=== PATIENT | male | born 1985 | race Caucasian/White ===

== ENCOUNTER 2019-06-04 12:03 | Inpatient (IN) ==
[2019-06-04] MEDS ORDERED: NS 1,000 ML IV ONE ×2 (12:17→13:55)
[2019-06-04 12:58] LABS: BASO# 0.03 X1000 (0.0-0.2); BASO% 0.3 % (0.0-0.8); EOS# 0.12 X1000 (0.0-0.7); HEMATOCRIT 38.9 % (42.0-52.0); HEMOGLOBIN 13.7 g/dL (14.0-18.0); IMM GRAN# 0.11 X1000 (0.0-0.04); IMM GRAN% 0.9 % (0.0-0.5); LYMPH# 1.25 X1000 (1.2-3.4); LYMPH% 10.5 % (20.5-51.1); MCHC 35.2 g/dL (33-37); MCV 85.1 FL (81-99); MONO# 1.11 X1000 (0.11-0.59); MONO% 9.3 % (1.7-9.3); MPV 10.8 FL (7.4-10.4); NEUT# 9.31 X1000 (1.4-6.5); PLT 176 X1000 (130-400); RBC 4.57 XMIL (4.7-6.1); RDW 12.6 % (11.5-14.5); WBC 11.93 X1000 (4.8-10.8)
[2019-06-04 13:13] LABS: AGAP 18; ALBUMIN 4.5 g/dL (3.5-5.0); ALKALINE PHOSPHATASE 81 U/L (32-122); BUN 9 mg/dL (8-22); CHLORIDE 91 mmol/L (98-107); COSMO 251; CREATININE 0.9 mg/dL (0.7-1.2); ESTIMATED GFR > 60; GLUCOSE 110 mg/dL (70-104); GOT 22 U/L (10-34); GPT 21 U/L (10-44); POTASSIUM 3.1 mmol/L (3.5-5.1); SODIUM 125 mmol/L (136-145); TCO2 17 mmol/L (25-35); TOTAL PROTEIN 6.8 g/dL (6.3-8.3)
--- NOTE | 2019-06-04 13:15 | Diag Imaging Result Doc PS360 ---
EXAM: CT HEAD W/O CONTRAST 06/04/2019 HISTORY: AMS TECHNIQUE: This exam was performed using automated exposure control, adjustment of mA or kV according to patient size, and/or use of iterative reconstruction technique. COMMENT: There is no evidence of mass effect, bleed, or abnormal extra-axial fluid collection. The calvarium is intact. The visualized paranasal sinuses are clear. IMPRESSION: No evidence of acute intracranial disease. Electronically signed by Armando Rodriguez 06/04/2019 1:13 PM
--- NOTE | 2019-06-04 13:17 | Diag Imaging Result Doc PS360 ---
EXAM: CHEST-1 VIEW 06/04/2019 HISTORY: AMS TECHNIQUE: Erect AP chest at 1303 COMMENT: The inspiration is suboptimal. There are no previous studies. There are no focal pulmonary abnormalities. IMPRESSION: Poor inspiration. Electronically signed by Armando Rodriguez 06/04/2019 1:14 PM
[2019-06-04] MEDS ORDERED: POTASSIUM CHLORIDE 40 MEQ/SWI 40 MEQ/100 ML IVPB IV ONE (13:57)
[2019-06-04 14:02] LABS: URINE SOURCE CLEAN CATCH
[2019-06-04 14:06] LABS: BILIRUBIN URINE NEGATIVE (NEGATIVE); BLOOD URINE NEGATIVE (NEGATIVE); COLOR STRAW; GLUCOSE URINE NEGATIVE (NEGATIVE); KETONE URINE NEGATIVE (NEGATIVE); LEUKOCYTES URINE NEGATIVE (NEGATIVE); NITRITE URINE NEGATIVE (NEGATIVE); PROTEIN URINE NEGATIVE (NEGATIVE); SP GRAVITY URINE 1.002; TURBIDITY URINE CLEAR (CLEAR); UROBILINOGEN URINE NORMAL (NORMAL)
[2019-06-04 14:08] LABS: UR EPITHELIAL CELLS <10 /HPF (<10); URINE BACTERIA NEGATIVE /HPF; URINE RBC <10 /HPF (<10); URINE WBC <10 /HPF (<10)
[2019-06-04 14:13] LABS: UR AMPHETAMINES QUAL NONE DETECTED (NONE DETECT); UR BARBITUATES QUAL NONE DETECTED (NONE DETECT); UR BENZODIAZEPIN QUAL NONE DETECTED (NONE DETECT)
[2019-06-04 14:14] LABS: UR CANNABINOIDS QUAL NONE DETECTED (NONE DETECT); UR COCAINE QUAL NONE DETECTED (NONE DETECT); UR METHADONE QUAL NONE DETECTED (NONE DETECT); UR METHAMPHETAMINE QUAL NONE DETECTED (NONE DETECT); UR OPIATES QUAL NONE DETECTED (NONE DETECT); UR OXYCODONE QUAL NONE DETECTED (NONE DETECT); UR PCP QUAL NONE DETECTED (NONE DETECT); UR PROPOXYPHENE QUAL NONE DETECTED (NONE DETECT); UR TCA QUAL NONE DETECTED (NONE DETECT)
[2019-06-04] MEDS: POTASSIUM CHLORIDE 20 MEQ/SWI 20 MEQ/100 ML IVPB IV SCH ×2 (14:30→16:30)
--- NOTE | 2019-06-04 14:33 | Diag Imaging Result Doc PS360 ---
EXAM: CT ABD/PELVIS W/IV CONT ONLY 06/04/2019 HISTORY: NV TECHNIQUE: This exam was performed using automated exposure control, adjustment of mA or kV according to patient size, and/or use of iterative reconstruction technique. COMMENT: There are no previous studies available for comparison. There is minimal dependent atelectasis in the posterior costophrenic sulci bilaterally. There is a small amount of pleural fluid present on both sides. There is fluid in the distal esophagus and the stomach is somewhat distended with fluid. There is no evidence of small bowel dilatation or appendicitis. There is fluid in the ascending colon. The liver is slightly hypodense suggesting fatty change. The gallbladder is unremarkable. The adrenal glands are not enlarged. The pancreas is normal in appearance. There are bilateral renal cysts. The renal collecting systems are slightly distended. Pelvis: The urinary bladder is markedly distended extending into the lower abdomen. There is a Pulido catheter. There is no evidence of free fluid. There is no evidence of significant adenopathy. The aorta is not distended. The regional skeleton is intact. IMPRESSION: 1. Fluid in the distal esophagus stomach and ascending colon which may be indicative of gastroenteritis/enterocolitis. 2. Apparent urinary retention in the bladder with bilateral hydronephrosis. This is despite the presence of a Pulido catheter. Electronically signed by Armando Rodriguez 06/04/2019 2:30 PM
--- NOTE | 2019-06-04 14:42 | EKG Report ---
Test Performed on : 06/04/2019 1:09:02 PM Test Reason : CP Blood Pressure : / mmHG Vent. Rate : 087 BPM Atrial Rate : 087 BPM P-R Int : 144 ms QRS Dur : 090 ms QT Int : 386 ms P-R-T Axes : 035 052 068 degrees QTc Int : 464 ms Normal sinus rhythm. Normal ECG No previous ECGs available Unconfirmed Result
--- NOTE | 2019-06-04 14:57 | Diag Imaging Result Doc PS360 ---
EXAM: CHEST/ABD TUBE PLACEMENT 06/04/2019 HISTORY: NG Placement TECHNIQUE: Chest and abdomen for NG tube placement at 1446 COMMENT: The NG tube tip is in the fundus of the stomach. IMPRESSION: NG tube in the stomach. Electronically signed by Armando Rodriguez 06/04/2019 2:55 PM
[2019-06-04] MEDS ORDERED: ZOFRAN IV PRN ×3 (15:29→17:31)
[2019-06-04] MEDS ORDERED: ATIVAN IV PRN ×2 (15:29→15:32)
[2019-06-04] MEDS ORDERED: NS 1,000 ML IV SCH ×3 (15:30→17:29)
--- NOTE | 2019-06-04 15:37 | PROVIDER DOCUMENTATION ---
This chart was entered by Sara Yin Scribe, acting as scribe for Austin Sunshine CRNP. HPI-General Adult - General Chief Complaint: Altered Mental Status Stated Complaint: Vomitting Time Seen by Provider: 06/04/19 12:00 Source: EMS, other ([facility] staff) Allergies/Adverse Reactions: Patient Allergies Allergy/AdvReac Type Severity Reaction Status Date / Time No Known Allergies Allergy Verified 06/04/19 13:27 Home Medications: Home Medication List Medication Instructions Recorded Confirmed Last Taken Type Chlorpromazine [Thorazine] 100 mg PO DAILY 06/04/19 06/04/19 Unknown History Clonazepam [Klonopin] 1 mg PO BID 06/04/19 06/04/19 Unknown History [place] Carbonate 600 mg PO TID 06/04/19 06/04/19 Unknown History Topiramate [Topamax] 100 mg PO DAILY 06/04/19 06/04/19 Unknown History - History of Present Illness -Gen Adult Nature of Presenting Problems: pt is a 33 yr old male presenting via EMS from [facility], staff reports pt was found in bathroom floor, pt had been incontinent of bowel and bladder and had vomited x 1, pt was sleeping, easily roused on EMS arrival, but goes back to sleep quickly. pt admits taking his daily meds but denies taking anything else. pt is autistic and has hx of epilepsy. [facility] Review of Systems - Adult - REVIEW OF SYSTEMS - ADULT ROS:: unobtainable per condition Constitutional: reports: see HPI. denies: chills, fever Eyes: reports: no symptoms reported Ears, Nose, Mouth & Throat: reports: no symptoms reported Cardiovascular: reports: no symptoms reported Respiratory: reports: no symptoms reported Gastrointestinal: reports: no symptoms reported Genitourinary: reports: no symptoms reported Musculoskeletal: reports: no symptoms reported Integumentary: reports: no symptoms reported Neurological: reports: no symptoms reported Psychiatric: reports: no symptoms reported Endocrine: reports: no symptoms reported Hematologic/Lymphatic: reports: no symptoms reported Allergic/Immunologic: reports: no symptoms reported All Other Systems: Reviewed and Negative Past History - Adult - PAST MEDICAL HISTORY-ADULT Review of Records: reports: Old Records Reviewed, Nursing Assessment Review, Medications Reviewed, Social history reviewed & non-contributory. Major Childhood Illnesses: reports: denies history Cardiovascular: reports: denies history Respiratory: reports: denies history Gastrointestinal: reports: denies history Obstetrical/Gynecological: reports: denies history Genitourinary: reports: denies history Musculoskeletal: reports: denies history Neurological: reports: denies history Endocrine/Immune: reports: denies history Other Conditions: reports: denies history - IMMUNIZATION STATUS Childhood Immunizations: See Nurse Assessment Flu Vaccine: See Nurse Assessment - FAMILY HISTORY Family History: reviewed, not pertinent Physical Exam-General - PHYSICAL EXAM-ADULT Initial Vital Signs Reviewed: Yes - CONSTITUTIONAL General Appearance: no apparent distress, obese, lethargic (easily aroused) - EYES Eyes: PERRL/EOMI - HEAD, EARS, NOSE, MOUTH & THROAT HENMT: normocephalic/atraumatic, moist mucous membranes - NECK Neck: full range of motion, supple - RESPIRATORY Respiratory: lungs clear, normal breath sounds, no respiratory distress, no accessory muscle use - CARDIOVASCULAR Cardiovascular: normal peripheral pulses, regular rate, rhythm, no edema - GASTROINTESTINAL (ABDOMEN) Abdominal Exam: non tender, soft - LYMPHATIC Lymphatic: no adenopathy - MUSCULOSKELETAL Back Exam: normal inspection Extremity: normal range of motion, non-tender, normal inspection - SKIN Integumentary: normal turgor, warm/dry. negative: normal color (pale) Progress - PLAN OF CARE/RESULTS Progress/Plan/Lab Results: nurse reports difficulty with yu insertion using straight cath. Reports needing a Coude catheter for insertion. initially only 600ml came out. However, after returning from CT, the yu was clamped at 2000mL with more needing to drain. Result Diagrams: 06/04/19 12:55 06/04/19 12:55 - REASSESSMENT Reassessment #1 Time Reassessed: 14:49 Status: improving (patient is awake, alert and talking. He verbalize, mild stomach discomfort.) - EKG 1 Time of EKG reading by physician:: 13:09 EKG Read and Signed by:: Jordan Carlos EKG Interpretation (*Must complete 3 of following elements*): Normal Rate: 87 Rhythm: nsr [place]: normal QRS: normal [place] Interval: normal ST Wave: normal - XRAY 1 XRAY Study: Chest Impression: Abnormal ( Department of Imaging Patient: AUSTIN MERINOADM Date: 06/04/19MR#: [id number] : 1985ADM Status: REG [facility]#: [id number] Age/Sex: 33/MRoom/Bed: Loc: P.ED Ordering Physician: Austin Sunshine Family Physician: None,PCP Reason for Procedure: AMS Signed EXAM: CHEST-1 VIEW 06/04/2019 HISTORY: AMS TECHNIQUE: Erect AP chest at 1303 COMMENT: The inspiration is suboptimal. There are no previous studies. There are no focal pulmonary abnormalities. IMPRESSION: Poor inspiration. Electronically signed by Armando Rodriguez 06/04/2019 1:14 PM 06/04/19 1314 Interpreting Physician: Armando Rodriguez MD Dictated Date/Time: 06/04/19 1314 cc: Austin Sunshine; None,PCP) Comparison with other Films: no prior study - CT/MRI 1 CT Study: Head Impression: Normal ( Patient: AUSTIN MERINOADM Date: 06/04/19MR#: [id number] : 1985ADM Status: REG [facility]#: [id number] Age/Sex: 33/MRoom/Bed: Loc: P.ED Ordering Physician: Austin Sunshine Family Physician: None,PCP Reason for Procedure: AMS Signed EXAM: CT HEAD W/O CONTRAST 06/04/2019 HISTORY: AMS TECHNIQUE: This exam was performed using automated exposure control, adjustment of mA or kV according to patient size, and/or use of iterative reconstruction technique. COMMENT: There is no evidence of mass effect, bleed, or abnormal extra-axial fluid collection. The calvarium is intact. The visualized paranasal sinuses are clear. IMPRESSION: No evidence of acute intracranial disease. Electronically signed by Armando Rodriguez 06/04/2019 1:13 PM 06/04/19 1313 Interpreting Physician: Armando Rodriguez MD Dictated Date/Time: 06/04/19 1312 cc: Austin Sunshine; None, P) Comparison with other Films: no prior study 2 CT Study: Abdomen, Pelvis Impression: Abnormal ( Patient: AUSTIN MERINOADM Date: 06/04/19#: [id number] : 1985ADM [facility] ERA[facility]ct#: [id number] Age/Sex: 33/MRoom/Bed: Loc: P.ED Ordering Physician: Austin Susnhine Family Physician: None,PCP Reason for Procedure: NV Signed EXAM: CT ABD/PELVIS W/IV CONT ONLY 06/04/2019 HISTORY: NV TECHNIQUE: This exam was performed using automated exposure control, adjustment of mA or kV according to patient size, and/or use of iterative reconstruction technique. COMMENT: There are no previous studies available for comparison. There is minimal dependent atelectasis in the posterior costophrenic sulci bilaterally. There is a small amount of pleural fluid present on both sides. There is fluid in the distal esophagus and the stomach is somewhat distended with fluid. There is no evidence of small bowel dilatation or appendicitis. There is fluid in the ascending colon. The liver is slightly hypodense suggesting fatty change. The gallbladder is unremarkable. The adrenal glands are not enlarged. The pancreas is normal in appearance. There are bilateral renal cysts. The renal collecting systems are slightly distended. Pelvis: The urinary bladder is markedly distended extending into the lower abdomen. There is a Yu catheter. There is no evidence of free fluid. There is no evidence of significant adenopathy. The aorta is not distended. The regional skeleton is intact. IMPRESSION: 1. Fluid in the distal esophagus stomach and ascending colon which may be indicative of gastroenteritis/enterocolitis. 2. Apparent urinary retention in the bladder with bilateral hydronephrosis. This is despite the presence of a Yu catheter. Electronically signed by Armando Rodriguez 06/04/2019 2:30 PM 06/04/19 1430 Interpreting Physician: Armando Rodriguez MD Dictated Date/Time: 06/04/19 1426 cc: Austin Sunshine; None,PCP) - CONSULTS/PCP/HOSPITALIST Notification #1 *Consult/PCP/Hospitalist*: Dr Joseph Time Discussed: 15:31 Reason/Comments: Urinary Retention, Bilateral Hydonephrosis, metabolic acidosis Consult Disposition: Admit Departure - Departure Date of Disposition Decision: 06/04/19 Time of Disposition Decision: 15:35 DIAGNOSIS: Bilateral hydronephrosis, Urinary retention, Metabolic acidosis Disposition: ADMITTED INPATIENT 09 Certified Medical Emergency: Emergent Condition: Critical Additional Instructions: ED Follow Up Instructions: You have been treated by a care provider in the Emergency Department. These instructions are being provided to you so you can have an understanding of how to care for yourself upon discharge. Upon discharge from the Emergency Department, you are responsible for making arrangements for follow-up care by a physician of your choice. Take all prescribed medications as directed. Return to the Emergency Department immediately for any new or worsening symptoms. You may call the Physician Referral phone number at [phone] to obtain a list of Physicians who are taking new patients. Referrals and Follow-Ups: None,PCP [Primary Care Provider] - - Critical Care Note This patient required my direct & personal management of CC.: No Attestation - Physician/ ASHLEIGH Attestation Patient care was provided by Advanced Practice Provider:: Yes Advanced Practice Provider:: Austin Sunshine Advanced Practice Provider documentation review:: The Mid-level provider documentation, treatment plan and medical decision making was reviewed by the physician who agrees with all treatment and medical decision making by the [facility]. The physician spent face to face time with patient:: No Advanced Practice Provider documentation review:: Supervising physician onsite a nd consulted in the evaluation and care of this patient. The physician did not have a face to face encounter with the patient. This chart was documented by the indicated scribe, (Sara Yin, Elaina) and accurately reflects the services I performed and decisions made by Bita ybarra Reagan R., CRNP, as attested by the provider's signature.
[2019-06-04] MEDS ORDERED: TYLENOL PO PRN (17:31)
[2019-06-04] MEDS ORDERED: POTASSIUM CHLORIDE 40 MEQ in NS 1,000 ML IV SCH (17:33)
[2019-06-04] MEDS ORDERED: OFIRMEV 1000 MG/ISOTONIC SOLN 1,000 MG/100 ML BOTTLE IV PRN (17:33)
--- NOTE | 2019-06-04 18:03 | HISTORY AND PHYSICAL ---
CHIEF COMPLAINT: Nausea and vomiting. HISTORY OF PRESENT ILLNESS: This is a 33-year-old male with not a lot of medical problems. I think most of it is psychiatric. He is not very old. He is 33, autistic, a long term patient. He was found on the bathroom floor incontinent of bowel and bladder. I did not get that information initially. But he has vomited several times. Lethargic initially, but he is not lethargic now. He had several more episodes of throwing up today in the ER to the point where they had to put an NG tube. He was retaining a significant amount of urine, so a catheter was placed. They placed a coude and they got 600 mL out, but in the last 5 hours he has had about 5 L out. Although no renal failure. His CT showed enterocolitis and significant urinary retention with hydronephrosis. Staff reports that he was treated for UTI last week and then he kind of had a fever, URI a couple weeks ago. Workup in the ER was unremarkable except for Enterocolitis and significant urinary retention. He was admitted for both those issues. Mullan level was somewhat low. White count was elevated as well. PAST MEDICAL HISTORY: Again, it just reports autism and reported seizure disorder. PAST SURGICAL HISTORY: I cannot tell he has had any abdominal surgeries or any major surgeries. SOCIAL HISTORY: No tobacco or ethanol. He is a long term patient. ALLERGIES: No known drug allergies. MEDICATIONS: He is on Klonopin 1 b.i.d., lithium 600 t.i.d., Thorazine 100 daily, and Topamax 100 daily. REVIEW OF SYSTEMS: Otherwise negative times a 10-point review of systems. PHYSICAL EXAMINATION: VITAL SIGNS: Blood pressure 117/80, heart rate 105, respiratory rate of 17, temperature was 97.7 degrees, and oxygen saturation 99% on room air. GENERAL: A well-developed male in no acute distress. HEAD: Examination was normocephalic, atraumatic. EYES: Pupils equal, round, and reactive to the light. Extraocular movements were intact. NOSE: He has an NG in place. CARDIOVASCULAR: Regular rate and rhythm. PULMONARY: Bilateral breath sounds diminished at the bases. GASTROINTESTINAL: Soft, nontender, nondistended. Bowel sounds were diminished. But his abdominal exam is pretty benign. GENITOURINARY: Deferred, but he has Pulido in place. NEUROLOGIC: Nonfocal. Cranial nerves II through XII were intact. He is alert and oriented. Strength is about 4 to 5 in all 4 extremities. Limited somewhat, but I think some of that is attention and cooperation. LABORATORY DATA: White count 11, hemoglobin and hematocrit 13 and 38, platelets 176,000. Creatinine normal 0.9, potassium 3.1, sodium 125. ASSESSMENT: This is a 33-year-old male coming in with urinary retention and evidence of enterocolitis, possibly viral, but such as a gastroenteritis. 1. Enterocolitis. We will try to get stool samples. There were reports of diarrhea. He has been on antibiotics, so I think we need to rule out Clostridium difficile. I am going to hold on any antibiotics at this point until we get that information sequestered. Continue antiemetic therapy. We will leave the nasogastric tube in place for the time being. Repeat plain films tomorrow and then assess if we can take it out. At this point there is no clear evidence of obstruction or anything to that effect. 2. Severe urinary retention. We will start Flomax. I guess check a PSA. He will at some point need Urology, but we are not going to plan to take the catheter out right now, so we will arrange that as an outpatient. If there is some sort of issue with it, we may have to get a urological opinion. But then he will have to be transferred to other facility. His urine was not infected. 3. Intellectual impairment, autism. He is on lithium. Those medications will likely need to be resumed although I do not think any of these can be substituted IV pisano, but hopefully we can get him back on his medicines as soon as tomorrow. DISPOSITION: Pending his clinical status. This is a service admission. He is a long term patient. Ari Wolf. Now his electrolytes were checked in March though and were normal. So we will continue to follow. cc: Alonso Joseph MD
[2019-06-04] MEDS: FLOMAX PO SCH (18:04)
[2019-06-04] MEDS: PROTONIX IV SCH (18:04)
[2019-06-04] MEDS: SODIUM CHLORIDE 0.9% INJ SCH (18:05)
[2019-06-04] MEDS: NS 1,000 ML IV SCH (18:55)
[2019-06-04] MEDS: ATIVAN IV PRN (19:34)
[2019-06-04 21:08] LABS: AGAP 17; BUN 7 mg/dL (8-22); CALCIUM 9.7 mg/dL (8.8-10.2); CHLORIDE 105 mmol/L (98-107); COSMO 275; CREATININE 0.9 mg/dL (0.7-1.2); ESTIMATED GFR > 60; GLUCOSE 129 mg/dL (70-104); POTASSIUM 3.9 mmol/L (3.5-5.1); SODIUM 138 mmol/L (136-145); TCO2 17 mmol/L (25-35)
[2019-06-05] MEDS: ATIVAN IV PRN ×3 (03:06→22:01)
[2019-06-05 05:07] LABS: BASO# 0.01 X1000 (0.0-0.2); BASO% 0.1 % (0.0-0.8); HEMATOCRIT 43.2 % (42.0-52.0); HEMOGLOBIN 14.8 g/dL (14.0-18.0); IMM GRAN# 0.01 X1000 (0.0-0.04); IMM GRAN% 0.1 % (0.0-0.5); LYMPH# 0.47 X1000 (1.2-3.4); LYMPH% 5.8 % (20.5-51.1); MCH 30.3 PG (27-31); MCHC 34.3 g/dL (33-37); MCV 88.5 FL (81-99); MONO# 0.58 X1000 (0.11-0.59); MONO% 7.2 % (1.7-9.3); MPV 10.8 FL (7.4-10.4); NEUT# 6.99 X1000 (1.4-6.5); NEUT% 86.8 % (42.2-75.2); PLT 234 X1000 (130-400); RBC 4.88 XMIL (4.7-6.1); WBC 8.06 X1000 (4.8-10.8)
[2019-06-05] MEDS: NS 1,000 ML IV SCH (05:17)
[2019-06-05 05:23] LABS: ESTIMATED GFR > 60
[2019-06-05 05:27] LABS: LYMPHS 5 % (21-51); MONO 1 % (1-9); SEGS 94 % (42-75)
[2019-06-05 05:41] LABS: AGAP 17; BUN 8 mg/dL (8-22); CALCIUM 10.2 mg/dL (8.8-10.2); CHLORIDE 119 mmol/L (98-107); COSMO 300; CREATININE 0.9 mg/dL (0.7-1.2); GLUCOSE 130 mg/dL (70-104); SODIUM 151 mmol/L (136-145); TCO2 15 mmol/L (25-35)
--- NOTE | 2019-06-05 07:06 | Diag Imaging Result Doc PS360 ---
EXAM: ABDOMEN FLAT/UPRIGHT 06/05/2019 HISTORY: sbo TECHNIQUE: Flat and upright abdomen COMMENT: There is some stool throughout the colon. The stomach and small bowel are not distended. There is a Pulido catheter. There is no evidence of organomegaly or mass. IMPRESSION: Mild constipation. Electronically signed by Armando Rodriguez 06/05/2019 7:04 AM
[2019-06-05] MEDS: FLOMAX PO SCH (09:01)
[2019-06-05] MEDS: MIRALAX PO SCH (11:31)
[2019-06-05] MEDS: TOPAMAX PO SCH (11:32)
[2019-06-05] MEDS: LACTULOSE PO SCH ×2 (11:32→21:00)
[2019-06-05] MEDS: KLONOPIN PO SCH ×2 (11:32→21:01)
[2019-06-05] MEDS: THORAZINE PO SCH (11:32)
--- NOTE | 2019-06-05 12:08 | PROGRESS NOTE ---
DATE: 06/05/2019 SUBJECTIVE: Patient has no major complaints. He is much better today. He pulled his nasogastric tube out and he is drinking liquids. OBJECTIVE: Blood pressure 128/89, heart rate of 101, respiratory rate of 18, temperature 98.2 degrees. Cardiovascular: Regular rate and rhythm. Pulmonary: Bilateral breath sounds clear to auscultation. GI: Soft, nontender, nondistended. Bowel sounds were positive. White count is 8, hemoglobin and hematocrit 14 and 43, platelets of 234,000. Sodium is up to 151. It jumped from 125 to 138 and that was after getting fluids but I think he got 2 boluses in the ER before he was even seen. Unfortunately, he overcorrected but we will continue to monitor that. Now, he is hypernatremic. I get a sense though he does drink an excessive amount of water. He is also on lithium but is subtherapeutic. White count is normal now. Hemoglobin and hematocrit 14 and 43, platelets 234,000. Bicarb is 15 so he is a bit acidotic with a mild anion gap acidosis which I am not clearly sure what that is from. ASSESSMENT AND PLAN: 1. Colitis. Now, x-rays show constipation so we will put him on a bowel regimen but that seems to be completely resolved. 2. Severe urinary retention. He is on Flomax and will need to follow up with urology. At this point, I do not think they need to do anything else until followup and he has had time to be on the Flomax. 3. Hypernatremia. We will check urine electrolytes and give him hypotonic fluids, and then we will see how things go. 4. Autism. He has been off his medications so we are going to put him back on his lithium. He is agitated, requiring one-to-one monitoring. In any case, we will continue to follow closely. Possible discharge tomorrow and advance his diet today and monitor. cc: Alonso Joseph MD
[2019-06-05] MEDS: D5 1/2 NS 1,000 ML IV SCH ×2 (13:15→23:00)
[2019-06-05] MEDS: LITHIUM CARBONATE PO SCH ×2 (13:59→21:01)
[2019-06-05] MEDS: SODIUM CHLORIDE 0.9% INJ SCH (16:45)
[2019-06-05] MEDS: PROTONIX IV SCH (16:45)
[2019-06-06] MEDS: ATIVAN IV PRN (02:30)
[2019-06-06 05:24] LABS: BASO# 0.02 X1000 (0.0-0.2); BASO% 0.2 % (0.0-0.8); EOS# 0.03 X1000 (0.0-0.7); EOS% 0.4 % (0.0-10.0); HEMATOCRIT 40.5 % (42.0-52.0); HEMOGLOBIN 13.5 g/dL (14.0-18.0); IMM GRAN# 0.01 X1000 (0.0-0.04); IMM GRAN% 0.1 % (0.0-0.5); LYMPH% 9.7 % (20.5-51.1); MCH 30.5 PG (27-31); MCHC 33.3 g/dL (33-37); MCV 91.4 FL (81-99); MONO# 0.46 X1000 (0.11-0.59); MONO% 5.6 % (1.7-9.3); MPV 10.7 FL (7.4-10.4); NEUT# 6.93 X1000 (1.4-6.5); PLT 217 X1000 (130-400); RBC 4.43 XMIL (4.7-6.1); RDW 14.6 % (11.5-14.5); WBC 8.25 X1000 (4.8-10.8)
[2019-06-06 05:25] LABS: ESTIMATED GFR > 60
[2019-06-06 05:50] LABS: AGAP 13; BUN 8 mg/dL (8-22); CALCIUM 9.9 mg/dL (8.8-10.2); CHLORIDE 122 mmol/L (98-107); COSMO 304; CREATININE 0.9 mg/dL (0.7-1.2); GLUCOSE 132 mg/dL (70-104); POTASSIUM 3.6 mmol/L (3.5-5.1); SODIUM 153 mmol/L (136-145); TCO2 18 mmol/L (25-35)
[2019-06-06] MEDS: LITHIUM CARBONATE PO SCH ×3 (06:19→20:55)
[2019-06-06] MEDS: THORAZINE PO SCH ×2 (07:57→08:11)
[2019-06-06] MEDS: FLOMAX PO SCH ×3 (07:58→08:10)
[2019-06-06] MEDS: KLONOPIN PO SCH ×3 (07:58→20:54)
[2019-06-06] MEDS: MIRALAX PO SCH ×2 (07:58→08:11)
[2019-06-06] MEDS: LACTULOSE PO SCH ×3 (07:58→20:54)
[2019-06-06] MEDS: TOPAMAX PO SCH ×2 (07:59→08:11)
[2019-06-06] MEDS: D5 1/2 NS 1,000 ML IV SCH (09:13)
[2019-06-06] MEDS: D5W 1,000 ML IV SCH ×2 (11:34→21:45)
--- NOTE | 2019-06-06 12:09 | PROGRESS NOTE ---
DATE: 06/06/2019 SUBJECTIVE: Patient has no major complaints. OBJECTIVE: Blood pressure 114/66, heart rate of 78, respiratory rate 18, temperature 98 degrees, 98% on room air. Cardiovascular: Regular rate and rhythm. Pulmonary: Bilateral breath sounds clear to auscultation. GI: Soft, nontender, nondistended. Bowel sounds were positive. Laboratory Data: Sodium is still high. In fact, it is higher, 153 which is strange. He is very thirsty but apparently I think when he came in, he was low sodium which would be consistent with psychogenic polydipsia, but now he is hypernatremic despite free water resuscitation. He is on very high dose lithium but his lithium level when he came in was very low so at this point, I am not sure if this has switched gears. ASSESSMENT AND PLAN: 1. Colitis. That seems to have resolved. If anything, now he is constipated. 2. Severe urinary retention. He is on Flomax and has a Pulido. He will need genitourinary followup. 3. Hypernatremia and now I am concerned that he may have diabetes insipidus, although his urine output is not extravagant per day but he is hyponatremic, so he is on D5 now. We will encourage oral intake until his sodium levels come back. I am going to check it again this evening. If it is still going up, I will have to consult nephrology or get some direction from nephrology about him. 4. Autism with possibly bipolar. We are going to continue his medications and follow. I do not think he needs active treatment right now. cc: Alonso Joseph MD
[2019-06-06 12:22] LABS: ESTIMATED GFR > 60
[2019-06-06 12:31] LABS: AGAP 14; BUN 7 mg/dL (8-22); CALCIUM 10.3 mg/dL (8.8-10.2); CHLORIDE 123 mmol/L (98-107); COSMO 310; GLUCOSE 116 mg/dL (70-104); POTASSIUM 3.7 mmol/L (3.5-5.1); SODIUM 157 mmol/L (136-145); TCO2 21 mmol/L (25-35)
[2019-06-06] MEDS: PROTONIX IV SCH (17:04)
[2019-06-07] MEDS: LITHIUM CARBONATE PO SCH ×3 (06:06→20:13)
[2019-06-07 06:29] LABS: AGAP 12; BUN 9 mg/dL (8-22); CALCIUM 9.9 mg/dL (8.8-10.2); CHLORIDE 114 mmol/L (98-107); COSMO 295; CREATININE 1.1 mg/dL (0.7-1.2); ESTIMATED GFR > 60; GLUCOSE 104 mg/dL (70-104); POTASSIUM 3.6 mmol/L (3.5-5.1); SODIUM 149 mmol/L (136-145); TCO2 24 mmol/L (25-35)
[2019-06-07] MEDS: D5W 1,000 ML IV SCH (06:45)
[2019-06-07] MEDS: KLONOPIN PO SCH ×2 (09:59→20:13)
[2019-06-07] MEDS: THORAZINE PO SCH (10:00)
[2019-06-07] MEDS: FLOMAX PO SCH (10:00)
[2019-06-07] MEDS: TOPAMAX PO SCH (10:00)
[2019-06-07] MEDS: LACTULOSE PO SCH ×2 (10:00→20:13)
[2019-06-07] MEDS: MIRALAX PO SCH (10:01)
[2019-06-07] MEDS ORDERED: D5W 1,000 ML IV SCH (12:41)
[2019-06-07] MEDS ORDERED: PROTONIX [NONFORMULARY] PO SCH (21:00)
--- NOTE | 2019-06-07 21:37 | PROGRESS NOTE ---
DATE: 06/07/2019 SUBJECTIVE: Patient with no new complaints. Notes that he is feeling okay. PHYSICAL EXAM: Vital Signs: Temperature 98 degrees, pulse 88, respiratory rate 18, BP 125/81. General: Patient is awake, alert, pleasant and very talkative. He is in no respiratory distress. HEENT: Normocephalic, atraumatic. [place]. Neck: Supple. CV: Regular rate. Chest: Clear. Abdomen: Soft. Extremities: Moves all extremities. ASSESSMENT: 1. Hypernatremia. Sodium has continued to improve. Currently 147. 2. Colitis. 3. Urinary retention. He is on Flomax. 4. Autism. PLAN: We are going to recheck his labs in the a.m. If sodium is better, we can discharge home. Certainly will need to try to bladder train him and hopefully remove his Pulido. cc: MD Alonso Grigsby MD
[2019-06-08 05:59] LABS: BASO# 0.04 X1000 (0.0-0.2); BASO% 0.4 % (0.0-0.8); EOS# 0.18 X1000 (0.0-0.7); EOS% 1.9 % (0.0-10.0); HEMATOCRIT 46.5 % (42.0-52.0); HEMOGLOBIN 15.1 g/dL (14.0-18.0); IMM GRAN# 0.02 X1000 (0.0-0.04); IMM GRAN% 0.2 % (0.0-0.5); LYMPH# 1.32 X1000 (1.2-3.4); LYMPH% 13.7 % (20.5-51.1); MCH 29.8 PG (27-31); MCHC 32.5 g/dL (33-37); MCV 91.7 FL (81-99); MONO# 0.51 X1000 (0.11-0.59); MONO% 5.3 % (1.7-9.3); MPV 10.9 FL (7.4-10.4); NEUT% 78.5 % (42.2-75.2); PLT 235 X1000 (130-400); RBC 5.07 XMIL (4.7-6.1); RDW 14.2 % (11.5-14.5); WBC 9.67 X1000 (4.8-10.8)
[2019-06-08] MEDS: LITHIUM CARBONATE PO SCH (06:03)
[2019-06-08 06:41] LABS: AGAP 14; ALBUMIN 4.8 g/dL (3.5-5.0); ALKALINE PHOSPHATASE 104 U/L (32-122); BUN 10 mg/dL (8-22); CHLORIDE 116 mmol/L (98-107); COSMO 300; CREATININE 0.9 mg/dL (0.7-1.2); ESTIMATED GFR > 60; GLUCOSE 114 mg/dL (70-104); GOT 34 U/L (10-34); GPT 52 U/L (10-44); POTASSIUM 3.6 mmol/L (3.5-5.1); SODIUM 151 mmol/L (136-145); TCO2 21 mmol/L (25-35); TOTAL PROTEIN 7.5 g/dL (6.3-8.3)
[2019-06-08 07:14] VITALS: BP 128/97
[2019-06-08] MEDS: THORAZINE PO SCH (08:01)
[2019-06-08] MEDS: TOPAMAX PO SCH (08:01)
[2019-06-08] MEDS: KLONOPIN PO SCH (08:01)
[2019-06-08] MEDS: LACTULOSE PO SCH (08:01)
[2019-06-08] MEDS: MIRALAX PO SCH (08:01)
[2019-06-08] MEDS: FLOMAX PO SCH (08:01)
[2019-06-08] MEDS ORDERED: FLOMAX PO SCH (09:00)
[2019-06-08] MEDS ORDERED: LITHIUM CARBONATE PO SCH (21:00)
[2019-06-08] MEDS ORDERED: TOPAMAX PO SCH (21:00)
--- NOTE | 2019-06-08 21:06 | DISCHARGE SUMMARY ---
ADMISSION DATE: 06/04/2019 DISCHARGE DATE: 06/08/2019 DISCHARGE DIAGNOSES: 1. Colitis, resolved. 2. Severe urinary retention. Currently he is on Flomax and has a Pulido catheter. 3. Hyponatremia, stable. 4. Autism. CONSULTATIONS: None. PROCEDURES: None. BRIEF HOSPITAL COURSE: Patient is a 33-year-old male who presented to the hospital with a colitis. Thankfully that has resolved. His symptoms have improved. He is eating without any difficulty. He was noted to have severe urinary retention which required a Pulido catheter and was unable to be removed. Currently is on Flomax. His hyponatremia improved although still mildly elevated sodium at 149 to 151. DISPOSITION: We are going to discharge the patient home with a Pulido catheter as well as Flomax twice daily. He will follow up outpatient with Urology. We will continue to follow. We will continue his other home medications and continue low-salt diet. cc: Ishan Lima MD
[2019-06-09] MEDS ORDERED: COGENTIN PO SCH (09:00)
== END 2019-06-08 11:20 | disposition home health service (06) | DRG 392 ==
LOC: P.ED 12:03 → SUATTDRO 16:56 → P.MEDSURG 16:56
PROVIDERS: ATTEND Family Medicine